=== PATIENT | male | born 1980 | race African-American/Black ===

== ENCOUNTER 2020-11-04 11:18 | Emergency (ER) | payer BC ==
[~2020-11-04] VITALS: Ht 185.4 cm; Wt 81.6 kg
--- NOTE | 2020-11-04 11:30 | NUR ---
patient received axox4.no sob no distress noted.c/o nausea .
[2020-11-04] MEDS ORDERED: IV NS 0.9% 1,000 ML BAG IV ONE (12:00)
[2020-11-04] MEDS ORDERED: ONDANSETRON HCL/PF 4 MG/2 ML VIAL IVP ONE (12:00)
[2020-11-04] MEDS ORDERED: ONDANSETRON HCL/PF 4 MG/2 ML VIAL ONE (12:00)
[2020-11-04 12:30] VITALS: BP 148/97
[2020-11-04 12:35] LABS: BILIRUBIN,URINE Negative (NEGATIVE); COLOR,URINE YELLOW (YELLOW); LEUKOCYTE ESTERASE ,URINE Negative (NEGATIVE); NITRITE, URINE Negative (NEGATIVE); PH,URINE 5.5 (5.0-8.0); PROTEIN,URINE Negative (NEGATIVE); UGLUCOSE Negative (NEGATIVE); UROBILINOGEN,URINE 0.2 EU/dL (0.2)
[2020-11-04 12:36] LABS: EOSINOPHILS % (AUTO) 0.5 % (0.0-6.0); HEMATOCRIT 45 % (39-51); HEMOGLOBIN 14.9 g/dL (13.5-17.5); LYMPHOCYTES # (AUTO) 1.9 K/uL (0.8-4.8); LYMPHOCYTES % (AUTO) 37.3 % (20.0-44.0); MEAN CORPUSCULAR HGB CONC 33 g/dl (31.0-36.0); MEAN CORPUSCULAR VOLUME 90 fL (80-96); MONOCYTES # (AUTO) 0.5 K/uL (0.1-1.30); NEUTROPHILS # (AUTO) 2.7 K/uL (1.8-8.9); NEUTROPHILS % (AUTO) 52.2 % (43.0-81.0); PLATELET COUNT (AUTO) 311 K/uL (150-450); RED BLOOD CELL COUNT(AUTO) 5.03 MIL/uL (4.5-6.0); WHITE BLOOD COUNT (AUTO) 5.1 K/uL (4.3-11.0)
[2020-11-04 12:47] LABS: CALCIUM, SERUM 9.5 mg/dL (8.5-10.1); CREATININE 1.1 mg/dL (0.6-1.3); POTASSIUM 4.3 mmol/L (3.5-5.1)
[2020-11-04 12:52] LABS: ALBUMIN 4.3 g/dL (3.4-5.0); BILIRUBIN,DIRECT 0.3 mg/dL (0.0-0.2); TOTAL PROTEIN, SERUM 8.3 g/dL (6.4-8.2)
[2020-11-04 12:52] LABS: BACTERIA,URINE Rare /HPF (None Seen); RBC,URINE NONE SEEN /HPF (0-2); WBC,URINE 0-2 /HPF (0-3)
[2020-11-04 12:53] LABS: SQUAMOUS EPITHELIAL CELL,UR Rare /HPF (None Seen)
[2020-11-04] MEDS ORDERED: ONDA4TAB5 PO (13:13)
--- NOTE | 2020-11-04 13:24 | NUR ---
patient blood draw done .result seen by MD.IVF administered ,meds given.patient is ready for discharge.
--- NOTE | 2020-11-04 13:31 | NUR ---
Patient discharged to home in stable condition. Written and verbal after care instructions given. Patient verbalizes understanding of instruction.prescription given to the [facility].IV removed. Catheter intact and site benign. Pressure and 4x4 applied to site. No bleeding noted.
== END 2020-11-04 13:33 | disposition home or self-care (01) ==
LOC: ER 11:24
DX: R11.2 Nausea with vomiting, unspecified (principal); R53.83 Other fatigue; Z79.899 Other long term (current) drug therapy
CPT/HCPCS: 36415; 80048; 80076; 81001; 83690; 85025; 96361; 96374; 99283; J2405; J7030